=== PATIENT | male | born 1995 | race Caucasian/White ===

== ENCOUNTER 2019-11-02 15:38 | Emergency (ER) | payer OTHER ==
[~2019-11-02] VITALS: Ht 182.9 cm; Wt 114.8 kg
[2019-11-02 16:20] VITALS: BP 131/89; Ht 182.9 cm; Wt 114.8 kg
== END 2019-11-02 18:07 | disposition home or self-care (01) ==
LOC: ED 15:38
DX: M10.9 Gout, unspecified (principal)